=== PATIENT | male | born 1940 | race Caucasian/White ===

== ENCOUNTER 2016-06-28 17:34 | Inpatient (IN) | payer MEDICARE, BC ==
[2016-06-28] VITALS (7 sets, daily range): BP systolic 140–159; BP diastolic 64–88; PULSE 76–96; RESP 15–17; TEMP 97.8–98.6; O2SAT 95–98
[~2016-06-28] VITALS: Ht 172.7 cm; Wt 98.3 kg
[2016-06-28] MEDS ORDERED: SODIUM CHLOR 0.9% 1000 ML INJ 1,000 ML IV SCH (18:15)
[2016-06-28] MEDS ORDERED: ZOCO20TA PO (18:17)
[2016-06-28] MEDS ORDERED: [UNRECOGNIZED DRUG - OTHER] PO (18:17)
[2016-06-28] MEDS ORDERED: OMEG100010 PO (18:17)
[2016-06-28] MEDS ORDERED: CHOL100025 CHEW (18:17)
[2016-06-28 18:25] LABS: AUTOMATED NEUTROPHIL # 12.3 TH/MM3 (1.8-7.7); BASOPHIL # 0.5 TH/MM3 (0-0.2); BASOPHIL % 3.2 % (0.0-2.0); EOSINOPHIL % 0.2 % (0.0-4.0); HEMATOCRIT 44.5 % (39.0-51.0); LYMPHOCYTE # 1.9 TH/MM3 (1.0-4.8); MEAN CELL VOLUME 84.3 FL (80.0-100.0); MEAN CORPUSCULAR HEMOGLOBIN 28.2 PG (27.0-34.0); MEAN CORPUSCULAR HGB CONC 33.4 % (32.0-36.0); MONO % 5.1 % (0.0-8.0); NEUT % 79.5 % (16.0-70.0); PLATELET COUNT 312 TH/MM3 (150-450); RED BLOOD COUNT 5.28 MIL/MM3 (4.50-5.90); RED CELL DISTRIBUTION WIDTH 13.5 % (11.6-17.2); WHITE BLOOD COUNT 15.5 TH/MM3 (4.0-11.0)
[2016-06-28] MEDS ORDERED: MAGNESIUM HYDROXIDE SUSP 30 ML CUP PO PRN (18:30)
[2016-06-28] MEDS ORDERED: LACTULOSE SYRUP 20 GM/30 ML CUP PO PRN (18:30)
[2016-06-28] MEDS ORDERED: BISACODYL 10 MG SUPP RECTAL PRN (18:30)
[2016-06-28] MEDS ORDERED: NALOXONE HCL 0.4 MG/ML AMP IV PRN (18:30)
[2016-06-28] MEDS ORDERED: SODIUM CHLORIDE 0.9% FLUSH 10 ML FLUSH IV FLUSH PRN (18:30)
[2016-06-28] MEDS ORDERED: ONDANSETRON HCL 4 MG/2 ML VIAL IVP PRN (18:30)
[2016-06-28] MEDS ORDERED: SENNOSIDES 8.6 MG TAB PO PRN (18:30)
[2016-06-28 18:32] LABS: HEMO FLAGS DIFF FINAL
--- NOTE | 2016-06-28 18:33 | PD ---
HPI Chief Complaint: GI Complaint Time Seen by Provider: 18:10 Travel History International Travel<30 days: No Contact w/Intl Traveler<30days: No Traveled to known affect area: No History of Present Illness HPI 76-year-old male complaining of nausea and generalized malaise and weakness. Patient has history of syncope secondary to asystole in the past. Patient was referred to blender laborer pending pacemaker placement. Patient came from [place]. Patient's visiting [place]. Patient started having generalized malaise and weakness and nausea this afternoon. Patient was brought in for evaluation of GI symptoms. Patient is afebrile and vital signs stable upon presentation to the ED. Patient with putting the room and put on manager travel. Patient had a syncope and had asystole on monitor. Chest compressions started immediately. Patient regained pulse after 1 minute of asystole. Patient regained pulse and blood pressure and workup. Patient has no complaint now. Patient denies history hypertension, diabetes. Patient's on medication for hyperlipidemia. Patient is a nonsmoker. Patient denies any history of NC in the past. Patient denies any alcohol or drug abuse. PFSH Past Medical History Heart Rhythm Problems: Yes High Cholesterol: Yes Diminished Hearing: No Tetanus Vaccination: Unknown ?: Not Past Surgical History Abdominal Surgery: Yes (puncture injury) Appendectomy: Yes Social History Alcohol Use: Yes (rare) Tobacco Use: No Substance Use: No Allergies-Medications (Allergen,Severity, Reaction): Coded Allergies: No Known Allergies (Unverified , 06/28/16) Reported Meds & Prescriptions Reported Meds & Active Scripts Active Reported [super beta steroid] 1 Tab PO DAILY Vitamin D3 (Cholecalciferol) 1,000 Unit Chew 1,000 Units CHEW DAILY [place] 3 1000 mg ([place]-3 Fatty Acids) 1 Cap Cap 1 Cap PO DAILY Zocor (Simvastatin) 20 Mg Tab 20 Mg PO DAILY Review of Systems General / Constitutional: No: Fever Eyes: No: Visual changes HENT: No: Headaches Cardiovascular: No: Chest Pain or Discomfort Respiratory: No: Shortness of Breath Gastrointestinal: Positive: Nausea, No: Abdominal Pain Genitourinary: No: Dysuria Musculoskeletal: No: Pain Skin: No Rash Neurologic: Positive: Syncope, No: Weakness Psychiatric: No: Depression Endocrine: No: Polydipsia Hematologic/Lymphatic: No: Easy Bruising Physical Exam Narrative GENERAL: Well-nourished, well-developed patient. SKIN: Focused skin assessment warm/dry. HEAD: Normocephalic. EYES: No scleral icterus. No injection or drainage. NECK: Supple, trachea midline. No JVD or lymphadenopathy. CARDIOVASCULAR: Regular rate and rhythm without murmurs, gallops, or rubs. RESPIRATORY: Breath sounds equal bilaterally. No accessory muscle use. GASTROINTESTINAL: Abdomen soft, non-tender, nondistended. MUSCULOSKELETAL: No cyanosis, or edema. BACK: Nontender without obvious deformity. No CVA tenderness. Neurologic exam: Patient's awake alert oriented 3. No obvious focal neurological deficit. Data Data Last Documented VS Vital Signs Date Time Temp Pulse Resp B/P Pulse Ox O2 Delivery O2 Flow Rate FiO2 06/28/16 17:38 97.8 76 15 154/88 96 Orders Electrocardiogram (06/28/16 18:10) Complete Blood Count With Diff (06/28/16 18:10) Comprehensive Metabolic Panel (06/28/16 18:10) Creatine Kinase (Cpk) (06/28/16 18:10) Troponin I (06/28/16 18:10) Prothrombin Time / Inr (Pt) (06/28/16 18:10) Act Partial Throm Time (Ptt) (06/28/16 18:10) Thyroid Stimulating Hormone (06/28/16 18:10) Chest, Single Ap (06/28/16 18:10) Iv Access Insert/Monitor (06/28/16 18:10) Ecg Monitoring (06/28/16 18:10) Oximetry (06/28/16 18:10) Sodium Chlor 0.9% 1000 Ml Inj (Ns 1000 M (06/28/16 18:15) Consult Cardiology (06/28/16 ) [facility] Medical Decision Making Medical Screen Exam Complete: Yes Emergency Medical Condition: Yes Interpretation(s) 1832 PM. EKG shows sinus rhythm nonspecific ST-T wave change. Differential Diagnosis Differential diagnosis including asystole, sick sinus syndrome. Narrative Course 76-year-old male with an episode of asystole and syncope. Patient has 2 previous episodes of the same problem at home. I spoke with blender laborer Dr. Watson. Advised [facility] admission and cardiology consult for possible pacemaker placement. Diagnosis Primary Impression: Asystole Additional Impression: Syncope Qualified Code: R55 - Syncope, unspecified syncope type Admitting Information Admitting Physician Requests: Admit Garett Up MD June 28, 2016 18:33
[2016-06-28 18:34] LABS: CHLORIDE 106 MEQ/L (98-107); POTASSIUM 4.1 MEQ/L (3.5-5.1); SODIUM (NA) 141 MEQ/L (136-145)
[2016-06-28 18:37] LABS: ANION GAP 8 MEQ/L (5-15); BICARBONATE 27.4 MEQ/L (21.0-32.0)
[2016-06-28 18:38] LABS: BLOOD UREA NITROGEN 16 MG/DL (7-18)
[2016-06-28 18:39] LABS: APTT (PATIENT) 27.8 SEC (24.3-30.1); PROTHROMBIN TIME - PATIENT 11.4 SEC (9.8-11.6)
[2016-06-28 18:40] LABS: ALT (GPT) 24 U/L (12-78); AST (GOT) 33 U/L (15-37); GLOMERULAR FILTRATION RATE 75 ML/MIN (>89)
[2016-06-28 18:42] LABS: TOTAL BILIRUBIN ADULT 0.7 MG/DL (0.2-1.0)
[2016-06-28 18:43] LABS: ALKALINE PHOSPHATASE 90 U/L (45-117)
--- NOTE | 2016-06-28 18:45 | RADHPO ---
EXAM DATE/TIME: 06/28/2016 18:24 [facility] COMPARISON: No previous studies available for comparison. INDICATIONS : Syncopal episode today MEDICAL HISTORY : None. SURGICAL HISTORY : None. ENCOUNTER: Initial ACUITY: 1 day PAIN SCORE: 0/10 LOCATION: Bilateral chest FINDINGS: A single view of the chest demonstrates the lungs to be symmetrically aerated without evidence of mas s, infiltrate or effusion. The cardiomediastinal contours are unremarkable. Osseous structures are intact. CONCLUSION: No acute disease. Charles Mora MD on June 28, 2016 at 18:43 Board Certified Radiologist. This report was verified electronically.
[2016-06-28 18:52] LABS: CREATINE KINASE 61 U/L (39-308)
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
[2016-06-28] MEDS: SODIUM CHLOR 0.9% 1000 ML INJ 1,000 ML IV SCH (19:26)
[2016-06-28] MEDS ORDERED: DOCUSATE SODIUM 50 MG/SENNA 8.6 MG TAB PO SCH (21:00)
[2016-06-28] MEDS: SODIUM CHLORIDE 0.9% FLUSH 10 ML FLUSH IV FLUSH SCH (21:00)
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
--- NOTE | 2016-06-28 23:59 | PD.CARD ---
Cardiology Procedure Note Procedure Name: Transvenous pacemaker placement Procedure Date: June 28, 2016 Procedure Note: Right IJ placed by critical care, please see their note for details. TVP was floated into the RV with consistent pacing. Rate back up of 40 bpm Sensitivity at 2 mA Output at [address], pacing rechecked, output able to pace at 4mV so placed back at 8mV and locked. Chest Xray: No pneumo noted. Pacer appears to enter the RV but then is lost, does not appear to go up the RVOT. Most likely along the free wall. Pacing well, will leave in place for now without advancing. Tyrese Watson DO June 28, 2016 23:59
[2016-06-29] VITALS (8 sets, daily range): BP systolic 139–158; BP diastolic 73–91; PULSE 70–96; RESP 15–20; TEMP 97.6–98.1; O2SAT 94–98
--- NOTE | 2016-06-29 00:06 | RADRPT ---
EXAM DATE/TIME: 06/28/2016 23:44 [facility] COMPARISON: CHEST SINGLE AP, June 28, 2016, 18:24. INDICATIONS : Right sided central line placement. MEDICAL HISTORY : None. SURGICAL HISTORY : None. ENCOUNTER: Subsequent ACUITY: 1 day PAIN SCORE: 0/10 LOCATION: Right chest FINDINGS: A single view of the chest demonstrates the lungs to be symmetrically aerated without evidence of mas s, infiltrate or effusion. The cardiomediastinal contours are unremarkable. Osseous structures are intact. CONCLUSION: Normal examination with a new right IJ central venous catheter with its tip overlying the SVC. No vis ible pneumothorax. Praful Toussaint MD on June 29, 2016 at 0:05 Board Certified Radiologist. This report was verified electronically.
--- NOTE | 2016-06-29 00:38 | PD.PROCEDR ---
Procedure Note Procedure DATE: 06/29/16 LINE PLACEMENT: 6 Turkmen introducer placement INDICATION: Central venous access CONSENT Informed consent for procedure was obtained from patient after discussion of risks, benefits, alternatives. DESCRIPTION OF THE PROCEDURE The patient was placed in supine position, mild Trendelenburg. The skin was cleansed with Chloraprep 4. Additional barrier precautions included large sterile drape, sterile gloves, sterile gown, face mask, and hat. 1 % lidocaine was used for local anesthesia. Under direct ultrasound guidance and on single attempt, the vein was accessed with an introducer needle. The guide wire was advanced and the introducer and dilator were advanced. The dilator was removed. Dark venous blood was aspirated easily from the port. ESTIMATED BLOOD LOSS: Minimal COMPLICATIONS: No apparent complications. STAT chest x-ray demonstrated satisfactory introducer placement. No catheter sheath available as reportedly they have been ordered but the hospital is out. Advanced transvenous pacer but unable to obtain achieve sustained capture. Discussed with Dr. Watson who came to assist and successfully placed temporary transvenous pacer. Casi Cade MD June 29, 2016 00:38
--- NOTE | 2016-06-29 00:46 | RADRPT ---
EXAM DATE/TIME: 06/29/2016 00:21 [facility] COMPARISON: CHEST SINGLE AP, June 28, 2016, 23:44. INDICATIONS : Transvenous pacer placement. MEDICAL HISTORY : None. SURGICAL HISTORY : None. ENCOUNTER: Subsequent ACUITY: 2 days PAIN SCORE: 0/10 LOCATION: Right chest FINDINGS: A single view of the chest demonstrates the lungs to be symmetrically aerated without evidence of mas s, infiltrate or effusion. The cardiomediastinal contours are unremarkable. Osseous structures are intact. CONCLUSION: Normal examination. Right internal jugular central venous catheter in good position Praful Toussaint MD on June 29, 2016 at 0:44 Board Certified Radiologist. This report was verified electronically.
[2016-06-29] MEDS: SODIUM CHLOR 0.9% 1000 ML INJ 1,000 ML IV SCH ×2 (04:28→20:59)
[2016-06-29 05:21] LABS: AUTOMATED NEUTROPHIL # 10.3 TH/MM3 (1.8-7.7); BASOPHIL % 0.1 % (0.0-2.0); EOSINOPHIL % 0.2 % (0.0-4.0); HEMO FLAGS DIFF FINAL; LYMPH % 16.4 % (9.0-44.0); LYMPHOCYTE # 2.3 TH/MM3 (1.0-4.8); MEAN CELL VOLUME 84.9 FL (80.0-100.0); MEAN CORPUSCULAR HGB CONC 34.1 % (32.0-36.0); MONO % 9.5 % (0.0-8.0); NEUT % 73.8 % (16.0-70.0); PLATELET COUNT 245 TH/MM3 (150-450); RED BLOOD COUNT 4.83 MIL/MM3 (4.50-5.90); RED CELL DISTRIBUTION WIDTH 14.2 % (11.6-17.2); WHITE BLOOD COUNT 13.9 TH/MM3 (4.0-11.0)
[2016-06-29 05:32] LABS: INTERNATIONAL NORMALIZED RATIO 1.1 RATIO; PROTHROMBIN TIME - PATIENT 11.7 SEC (9.8-11.6)
[2016-06-29 05:42] LABS: ALKALINE PHOSPHATASE 84 U/L (45-117); ALT (GPT) 19 U/L (12-78); ANION GAP 7 MEQ/L (5-15); AST (GOT) 18 U/L (15-37); BLOOD UREA NITROGEN 11 MG/DL (7-18); CHLORIDE 107 MEQ/L (98-107); GLOMERULAR FILTRATION RATE 83 ML/MIN (>89); POTASSIUM 3.8 MEQ/L (3.5-5.1); SODIUM (NA) 142 MEQ/L (136-145); TOTAL BILIRUBIN ADULT 0.5 MG/DL (0.2-1.0)
--- NOTE | 2016-06-29 06:08 | HHI.CCPN ---
Subjective Remarks/Hospital Course 76-year-old male with past medical history of hyperlipidemia and tobacco abuse who presents to [facility] emergency department this afternoon after he states he was sitting on the couch tonight and got very lightheaded and nauseous. During his ED workup he was placed on engine monitor and had a syncopal event and then asystole. Chest compressions were initiated and he had return of rhythm and pulse after 1 minute. This episode recurred again in the emergency department and Dr. Up discussed with Dr. Watson who recommended transfer to [facility] and trans- venous pacer placement with probable permanent pacemaker placement. Patient states that he has been undergoing a workup for syncope as an outpatient in [facility] where he resides. He is currently visiting the [facility] because his grandson is graduating from [employer]. Patient states he initially had a syncopal event in April 2016 and fell and hit his head requiring stitches. He had a CT brain that was negative he had 2 week Holter monitor that was negative. He had a recurrent episode of syncope in May . After that he had carotid ultrasounds that were negative and echo that was reportedly negative. He had a one-month Holter monitor which we he completed on June [id number]. On June 15 he left to come to [place]. During his visit, he was contacted by the breeding technician that read his Holter monitor and was informed that he had 5.4 second positives and that permanent pacemaker placement was recommended and they recommended he make an appointment for pacemaker to be placed immediately upon arrival back to [place]. Patient is not on any medications that would affect heart rate. Subjective 06/29: Events overnight noted. Currently with some ectopy on monitor but hemodynamically stable. Actually hypertensive. For possible permit pacemaker placement today. Objective Vital Signs Date Time Temp Pulse Resp B/P Pulse Ox O2 Delivery O2 Flow Rate FiO2 06/29/16 03:27 96 06/29/16 03:27 98.0 15 139/80 95 06/29/16 00:20 Nasal Cannula 2.00 Result Diagram: 06/29/16 0448 06/29/16 0448 Imaging Last Impressions Chest X-Ray 06/29/16 0000 Signed Impressions: Service Date/Time: June 00:21 - CONCLUSION: Normal examination. Right internal jugular central venous catheter in good position Praful Toussaint MD Objective Remarks GENERAL: A 6-year-old male, critically ill currently resting in bed in no acute distress SKIN: Warm and dry. HEAD: Atraumatic. Normocephalic. EYES: Pupils equal and round about 3 Davis's bilaterally and reactive. No scleral icterus. No injection or drainage. ENT: No nasal bleeding or discharge. Mucous membranes pink and moist. NECK: Trachea midline. No JVD. CARDIOVASCULAR: RRR. S1, S2. No S4. Without murmur RESPIRATORY: No accessory muscle use. Clear to auscultation. Breath sounds equal bilaterally. GASTROINTESTINAL: Abdomen soft, non-tender, nondistended. Bowel sounds present. MUSCULOSKELETAL: Extremities without clubbing, cyanosis, or edema. No obvious deformities. NEUROLOGICAL: Awake and alert. No obvious cranial nerve deficits. Motor grossly within normal limits. Normal speech. A/P Assessment and Plan NEURO/PSYCH: No acute neurologic issues. Source likely likely cardiogenic in nature Patient states that in [place] he has had prior head CT and bilateral carotid ultrasounds that were negative. Attempt to obtain records from [place] otherwise will repeat at this facility RESP: Nasal cannula to keep saturations greater than equal to 92% Incentive spirometry while awake CV: Cardiogenic syncope Sonics bolus on monitor Hyperlipidemia Received CPR in ED 06/28 Temporary transv venous pacer placed 06/28/16 VVI RATE OF 40, 8mA, sensing 2 mV 2-D echocardiogram pending Cardiology following, Dr. Watson. Dr. Vasquez is his breeding technician in [place]. Actually planned pacemaker for July 07 elective Zocor 20 mg daily converted to Pravachol 40 mg daily. Fish oil 1 g daily currently held Check lipid panel Will be evaluated today by cardiology for possible permanent pacemaker placement. GI: NPO currently except for medications Protonix for GI prophylaxis Colace/as needed Senokot for bowel regimen FEN/RENAL/: History of BPH Not prescribed BPH meds Polo if indicated for accurate I's and O's in critically ill patient ID: Monitor for signs and symptoms of infection. HEME: Leukocytosis Likely stress reaction. Follow CBC daily. Monitor trends ENDO: Mild stress hyperglycemia. Resolved When resume diet, use low-dose insulin sliding scale before meals at bedtime if needed. Access - #6 Vietnamese introducer placed 06/28 by nocturnal pet house sitter - Temporary VVI pacemaker placed by Dr. Watson Prophylaxis - GI -Protonix - DVT - SCD/pharmacological prophylaxis okay with Critical Care: The total care time was 30 minutes. Time to perform other separately billable procedures was not included in the critical care time. Navarro Cabello MD June 29, 2016 06:08
[2016-06-29] MEDS ORDERED: POTASSIUM CHLORIDE 10 MEQ CONTROLLED RELEASE TAB PO ONE (06:15)
[2016-06-29 07:37] LABS: HDL CHOLESTEROL 33.8 MG/DL (40.0-60.0)
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
[2016-06-29] MEDS: SENNOSIDES 8.6 MG TAB PO SCH ×2 (09:00→20:59)
[2016-06-29] MEDS: DOCUSATE SODIUM 100 MG CAP PO SCH ×2 (09:00→20:58)
[2016-06-29] MEDS: PRAVASTATIN SOD 20 MG TAB PO SCH (10:20)
[2016-06-29] MEDS: SODIUM CHLORIDE 0.9% FLUSH 10 ML FLUSH IV FLUSH SCH ×2 (10:21→20:58)
[2016-06-29] MEDS: CHOLECALCIFEROL (VIT D3) 1000 UNIT TAB PO SCH (10:21)
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
--- NOTE | 2016-06-29 11:50 | EC ---
Study Study Date:06/29/2016 STUDY CONCLUSIONS SUMMARY - Left ventricle: The cavity size was normal. Wall thickness was normal. Systolic function was at the lower limits of normal. The estimated ejection fraction was in the range of 50% to 55%. Wall motion was normal; there were no regional wall motion abnormalities. - Aortic valve: Valve area: 3.11cm^2 (Vmax). If LV function is below 40, please consider prescribing an ACEI or ARB or document rationale for non-use. PROCEDURE DATA STUDY STATUS: Elective. Procedure: Transthoracic echocardiography. Image quality was poor. The study was technically limited due to poor acoustic window availability. Scanning was performed from the parasternal, apical, and subcostal acoustic windows. Study completion: The patient tolerated the procedure well. Transthoracic echocardiography. M-mode, complete 2D, complete spectral Doppler, and color Doppler. Height: Height: 68in. Weight: Weight: 230.5lb. Body mass index: BMI: 35.1kg/m^2. Body surface area: BSA: 2.17m^2. Patient status: Inpatient. CARDIAC ANATOMY LEFT VENTRICLE: Not well visualized. The cavity size was normal. Wall thickness was normal. Systolic function was at the lower limits of normal. The estimated ejection fraction was in the range of 50% to 55%. Wall motion was normal; there were no regional wall motion abnormalities. AORTIC VALVE: Trileaflet; normal thickness leaflets. Doppler: Transvalvular velocity was within the normal range. There was no stenosis. No regurgitation. Valve area: 3.11cm^2 (Vmax). Indexed valve area: 1.43cm^2/m^2 (Vmax). AORTA: Aortic root: The aortic root was normal in size. MITRAL VALVE: Structurally normal valve. Doppler: Transvalvular velocity was within the normal range. There was no evidence for stenosis. No regurgitation. Peak gradient: 4mm Hg (D). LEFT ATRIUM: The atrium was normal in size. RIGHT VENTRICLE: The cavity size was normal. Wall thickness was normal. PULMONIC VALVE: Doppler: Transvalvular velocity was within the normal range. There was no evidence for stenosis. No regurgitation. TRICUSPID VALVE: Structurally normal valve. Doppler: Transvalvular velocity was within the normal range. No regurgitation. PULMONARY ARTERY: The main pulmonary artery was normal-sized. Systolic pressure was within the normal range. RIGHT ATRIUM: The atrium was normal in size. PERICARDIUM: There was no pericardial effusion. SYSTEMIC VEINS: Inferior vena cava: The vessel was normal in size. Patient weight: 230.5lb _Ejection fraction:_ 65-75% _Fractional shortening:_ 32% up to 5Kg 5-11.5Kg 11.6-22.9Kg 23-45Kg 45-57Kg Aortic Root 7-13 <17 13-22 17-27 17-27 LA diam 6-13 <23 24-38 33-47 37-40 RVID 10-17 7-15 7-15 7-18 8-17 LVIDd 12-22 <32 24-38 33-47 37-40 LVPW 2-4 3-6 5-7 6-8 7-8 IVS 2-4 3-6 5-7 6-8 7-8 BASIC MEASUREMENTS ADULT NORMAL Left ventricle LV internal dimension, ED, chordal 45.4 mm 43-52 level, PLAX LV internal dimension, ES, chordal 36.2 mm 23-38 level, PLAX Fractional shortening, chordal level, *20 % >29 PLAX LV posterior wall thickness, ED 9.81 mm IVS/LVPW ratio, ED 1.02 <1.3 Ventricular septum Septal thickness, ED 9.98 mm Aortic valve Leaflet separation 19 mm 15-26 BASIC MEASUREMENTS ADULT NORMAL Aortic valve Leaflet separation 19 mm 15-26 Aorta Root diameter, ED 33 mm 20-37 Left atrium Anterior-posterior dimension, ES 35 mm 19-40 Anterior-posterior dimension index, ES 1.61 cm/m^2 <2.2 LA/aortic root ratio 1.06 DOPPLER MEASUREMENTS ADULT NORMAL Aortic valve Peak velocity, S 124 cm/s Valve area, Vmax 3.11 cm^2 Valve area index, Vmax 1.43 cm^2/m^2 Mitral valve Peak E-wave velocity 93.8 cm/s Peak A-wave velocity 116 cm/s Deceleration time *236 ms 150-230 Peak gradient, D 4 mm Hg Peak E/A ratio 0.8 Pulmonic valve Peak velocity, S 102 cm/s LEGEND: Mean values are shown as u=mean value. Asterisk (*) ingram values outside specified normal range. Prepared and signed by Praful Neil [id number]
--- NOTE | 2016-06-29 12:25 | PD.CARD.PN ---
Subjective Subjective Remarks No chest pain, no shortness of breath 1 event over night (~6am) where pacer necessary for back pacing at 40 bpm Objective Medications Current Medications Medications (Trade) Dose Ordered Sig/Rakesh Route Start Time Stop Time Status Last Admin (NS Flush) 2 ml UNSCH PRN IV FLUSH 06/28/16 18:30 (NS Flush) 2 ml BID IV FLUSH 06/28/16 21:00 06/29/16 10:21 (Zofran Inj) 4 mg Q6H PRN IVP 06/28/16 18:30 06/28/16 19:26 (Narcan Inj) 0.4 mg UNSCH PRN IV 06/28/16 18:30 (Milk Of Magnesia Liq) 30 ml Q12H PRN PO 06/28/16 18:30 (Senokot) 17.2 mg Q12H PRN PO 06/28/16 18:30 (Dulcolax Supp) 10 mg DAILY PRN RECTAL 06/28/16 18:30 (Lactulose Liq) 30 ml DAILY PRN PO 06/28/16 18:30 (Vitamin D3) 1,000 units DAILY PO 06/29/16 09:00 06/29/16 10:21 (Pravachol) 40 mg DAILY PO 06/29/16 09:00 06/29/16 10:20 (Colace) 100 mg BID PO 06/29/16 09:00 Sennosides 8.6 mg 8.6 mg Q12HR PO 06/29/16 09:00 Sodium Chloride 1,000 ml @ 150 mls/hr Q6H40M IV 06/30/16 02:00 Cefazolin Sodium 1000 mg/Sodium Chloride 150 ml @ 0 mls/hr ONCE IV 06/30/16 08:30 07/01/16 08:29 (Vancomycin Inj/ NS 250 ml Inj) 250 ml @ 0 mls/hr ONCE PRN IV 06/30/16 08:30 07/01/16 08:29 (Betadine 5% Antisepsis Kit) 1 applic HS TOPICAL 06/29/16 21:00 Vital Signs / I&O Vital Signs Date Time Temp Pulse Resp B/P Pulse Ox O2 Delivery O2 Flow Rate FiO2 06/29/16 11:33 88 06/29/16 11:00 97.8 70 16 140/75 97 06/29/16 11:00 70 06/29/16 07:49 94 Nasal Cannula 2.00 06/29/16 07:00 97.6 88 16 158/73 94 06/29/16 07:00 88 06/29/16 03:27 96 06/29/16 03:27 98.0 90 15 139/80 95 06/29/16 00:20 94 Nasal Cannula 2.00 06/28/16 23:36 94 17 140/78 95 06/28/16 23:36 92 06/28/16 21:30 95 06/28/16 21:30 98.6 96 17 142/82 95 06/28/16 20:35 88 150/70 95 Nasal Cannula 2 06/28/16 20:13 86 157/64 95 Nasal Cannula 2 06/28/16 19:25 85 16 159/75 98 Nasal Cannula 2 06/28/16 19:05 82 Nasal Cannula 2 06/28/16 18:21 96 06/28/16 17:38 97.8 76 15 154/88 96 I/O 06/28/16 06/28/16 06/28/16 06/29/16 06/29/16 06/29/16 07:00 15:00 23:00 07:00 15:00 23:00 Intake Total 867 ml Output Total 550 ml Balance 317 ml Intake Oral 140 ml IV Total 727 ml Output Urine Total 550 ml # Bowel Movements 0 Physical Exam GENERAL: NAD, AAOx3 SKIN: Warm and dry. HEAD: Atraumatic. Normocephalic. EYES: Pupils equal and round. No scleral icterus. No injection or drainage. ENT: No nasal bleeding or discharge. Mucous membranes pink and moist. NECK: Trachea midline. No JVD. Right IJ in place CARDIOVASCULAR: Regular rate and rhythm. RESPIRATORY: No accessory muscle use. Clear to auscultation. Breath sounds equal bilaterally. GASTROINTESTINAL: Abdomen soft, non-tender, nondistended. Hepatic and splenic margins not palpable. MUSCULOSKELETAL: Extremities without clubbing, cyanosis, or edema. No obvious deformities. NEUROLOGICAL: Awake and alert. No obvious cranial nerve deficits. Motor grossly within normal limits. Five out of 5 muscle strength in the arms and legs. Normal speech. PSYCHIATRIC: Appropriate mood and affect; insight and judgment normal. Laboratory Laboratory Tests Test 06/28/16 06/29/16 06/29/16 18:19 00:55 04:48 White Blood Count 15.5 TH/MM3 13.9 TH/MM3 Red Blood Count 5.28 MIL/MM3 4.83 MIL/MM3 Hemoglobin 14.9 GM/DL 14.0 GM/DL Hematocrit 44.5 % 41.0 % Mean Corpuscular Volume 84.3 FL 84.9 FL Mean Corpuscular Hemoglobin 28.2 PG 29.0 PG Mean Corpuscular Hemoglobin 33.4 % 34.1 % Concent Red Cell Distribution Width 13.5 % 14.2 % Platelet Count 312 TH/MM3 245 TH/MM3 Mean Platelet Volume 9.5 FL 9.0 FL Neutrophils (%) (Auto) 79.5 % 73.8 % Lymphocytes (%) (Auto) 12.0 % 16.4 % Monocytes (%) (Auto) 5.1 % 9.5 % Eosinophils (%) (Auto) 0.2 % 0.2 % Basophils (%) (Auto) 3.2 % 0.1 % Neutrophils # (Auto) 12.3 TH/MM3 10.3 TH/MM3 Lymphocytes # (Auto) 1.9 TH/MM3 2.3 TH/MM3 Monocytes # (Auto) 0.8 TH/MM3 1.3 TH/MM3 Eosinophils # (Auto) 0.0 TH/MM3 0.0 TH/MM3 Basophils # (Auto) 0.5 TH/MM3 0.0 TH/MM3 CBC Comment DIFF FINAL DIFF FINAL Differential Comment Prothrombin Time 11.4 SEC 11.7 SEC Prothromb Time International 1.0 RATIO 1.1 RATIO Ratio Activated Partial 27.8 SEC Thromboplast Time Sodium Level 141 MEQ/L 142 MEQ/L Potassium Level 4.1 MEQ/L 3.8 MEQ/L Chloride Level 106 MEQ/L 107 MEQ/L Carbon Dioxide Level 27.4 MEQ/L 28.0 MEQ/L Anion Gap 8 MEQ/L 7 MEQ/L Blood Urea Nitrogen 16 MG/DL 11 MG/DL Creatinine 0.98 MG/DL 0.89 MG/DL Estimat Glomerular Filtration 75 ML/MIN 83 ML/MIN Rate Random Glucose 155 MG/DL 92 MG/DL Calcium Level 8.6 MG/DL 7.9 MG/DL Total Bilirubin 0.7 MG/DL 0.5 MG/DL Aspartate Amino Transf 33 U/L 18 U/L (AST/SGOT) Alanine Aminotransferase 24 U/L 19 U/L (ALT/SGPT) Alkaline Phosphatase 90 U/L 84 U/L Total Creatine Kinase 61 U/L Troponin I LESS THAN 0.02 0.03 NG/ML NG/ML Total Protein 7.6 GM/DL 6.5 GM/DL Albumin 3.6 GM/DL 3.0 GM/DL Thyroid Stimulating Hormone 1.860 uIU/ML 3rd Gen Phosphorus Level 2.9 MG/DL Magnesium Level 2.0 MG/DL Triglycerides Level 68 MG/DL Cholesterol Level 123 MG/DL LDL Cholesterol 76 MG/DL HDL Cholesterol 33.8 MG/DL Cholesterol/HDL Ratio 3.63 RATIO Assessment and Plan Problem List: (1) Syncope (2) Asystole Assessment and Plan 1) TVP in place Retested this morning, able to pace at 3.5mV Set at rate of 40 bpm Output 8 mV Sensitivity 2 mA 2) Will defer to Dr. Robledo, EP Cardiology, for further management with a plan for PPM in the morning Problem Qualifiers (1) Syncope: Qualified Code: R55 - Syncope, unspecified syncope type Tyrese Watson DO June 29, 2016 12:25
--- NOTE | 2016-06-29 16:59 | EKG ---
Date Performed: 06/29/2016 Time Performed: 06:04:08 PTAGE: 76 years EKG: Sinus rhythm Normal ECG PREVIOUS TRACING : 06/29/2016 01.12 Compared to prior tracing no significant change DOCTOR: Tyrese Watson Interpretating Date/Time 06/29/2016 16:57:39
--- NOTE | 2016-06-29 17:05 | EKG ---
Date Performed: 06/29/2016 Time Performed: 01:12:58 PTAGE: 76 years EKG: Sinus rhythm with PVC(s) Borderline ECG Compared to the PREVIOUS TRACING from 06/28/16, no significant change DOCTOR: Tyrese Watson Interpretating Date/Time 06/29/2016 17:05:26
--- NOTE | 2016-06-29 17:25 | EKG ---
Date Performed: 06/28/2016 Time Performed: 18:02:18 PTAGE: 76 years EKG: Sinus rhythm . Poor R wave progression - probable normal variant Inferior T wave changes are nonspecific Borderlin e ECG NO PREVIOUS TRACING DOCTOR: Tyrese Watson Interpretating Date/Time 06/29/2016 17:23:55
[2016-06-29] MEDS: MUPIROCIN 2% OINT 1 APPLIC/GM SYR EACH NARE SCH (20:58)
[2016-06-29] MEDS: CHLORHEXIDINE GLUCONATE 2 % 1 PACK (2 CLOTHS) TOPICAL SCH (20:59)
[2016-06-29] MEDS: POVIDONE IODINE 5% (ANTISEPSIS KIT) 4 APPLICATIONS TOPICAL SCH (20:59)
[2016-06-30] VITALS (10 sets, daily range): BP systolic 122–169; BP diastolic 50–94; PULSE 62–85; RESP 16–20; TEMP 98–98.5; O2SAT 92–99
[2016-06-30] MEDS: SODIUM CHLOR 0.9% 1000 ML INJ 1,000 ML IV SCH (02:57)
[2016-06-30 05:58] LABS: AUTOMATED NEUTROPHIL # 9.4 TH/MM3 (1.8-7.7); BASOPHIL % 0.2 % (0.0-2.0); EOSINOPHIL # 0.1 TH/MM3 (0-0.4); EOSINOPHIL % 0.7 % (0.0-4.0); HEMATOCRIT 42.5 % (39.0-51.0); HEMO FLAGS DIFF FINAL; LYMPH % 17.3 % (9.0-44.0); LYMPHOCYTE # 2.3 TH/MM3 (1.0-4.8); MEAN CELL VOLUME 85.9 FL (80.0-100.0); MEAN CORPUSCULAR HEMOGLOBIN 27.8 PG (27.0-34.0); MEAN CORPUSCULAR HGB CONC 32.4 % (32.0-36.0); MONO % 10.7 % (0.0-8.0); NEUT % 71.1 % (16.0-70.0); PLATELET COUNT 214 TH/MM3 (150-450); RED BLOOD COUNT 4.94 MIL/MM3 (4.50-5.90); WHITE BLOOD COUNT 13.2 TH/MM3 (4.0-11.0)
[2016-06-30 06:23] LABS: ALT (GPT) 18 U/L (12-78); ANION GAP 5 MEQ/L (5-15); AST (GOT) 17 U/L (15-37); BICARBONATE 29.9 MEQ/L (21.0-32.0); BLOOD UREA NITROGEN 10 MG/DL (7-18); CHLORIDE 110 MEQ/L (98-107); GLOMERULAR FILTRATION RATE 89 ML/MIN (>89); MAGNESIUM 2.1 MG/DL (1.5-2.5); POTASSIUM 4.2 MEQ/L (3.5-5.1); SODIUM (NA) 145 MEQ/L (136-145)
[2016-06-30 06:26] LABS: ALKALINE PHOSPHATASE 87 U/L (45-117); TOTAL BILIRUBIN ADULT 0.3 MG/DL (0.2-1.0)
[2016-06-30] MEDS: SENNOSIDES 8.6 MG TAB PO SCH ×2 (08:23→21:00)
[2016-06-30] MEDS: DOCUSATE SODIUM 100 MG CAP PO SCH ×2 (08:23→21:00)
[2016-06-30] MEDS: PRAVASTATIN SOD 20 MG TAB PO SCH (08:23)
[2016-06-30] MEDS: CHOLECALCIFEROL (VIT D3) 1000 UNIT TAB PO SCH (08:24)
[2016-06-30] MEDS ORDERED: SODIUM CHLORIDE 0.9% IV SCH (08:30)
[2016-06-30] MEDS ORDERED: VANCOMYCIN INJ 1,000 MG in SODIUM CHLOR 0.9% 250 ML INJ 250 ML IV PRN (08:30)
[2016-06-30] MEDS ORDERED: CEFAZOLIN IV SCH (08:30)
[2016-06-30] MEDS: SODIUM CHLORIDE 0.9% FLUSH 10 ML FLUSH IV FLUSH SCH ×2 (08:38→21:19)
--- NOTE | 2016-06-30 09:14 | HHI.CCPN ---
Subjective Remarks/Hospital Course 76-year-old male with past medical history of hyperlipidemia and tobacco abuse who presents to [facility] emergency department this afternoon after he states he was sitting on the couch tonight and got very lightheaded and nauseous. During his ED workup he was placed on aquatic instructor and had a syncopal event and then asystole. Chest compressions were initiated and he had return of rhythm and pulse after 1 minute. This episode recurred again in the emergency department and Dr. Up discussed with Dr. Watson who recommended transfer to [facility] and trans- venous pacer placement with probable permanent pacemaker placement. Patient states that he has been undergoing a workup for syncope as an outpatient in [facility] where he resides. He is currently visiting the [facility] because his grandson is graduating from [employer]. Patient states he initially had a syncopal event in April 2016 and fell and hit his head requiring stitches. He had a CT brain that was negative he had 2 week Holter monitor that was negative. He had a recurrent episode of syncope in May . After that he had carotid ultrasounds that were negative and echo that was reportedly negative. He had a one-month Holter monitor which we he completed on June [id number]. On June 15 he left to come to [place]. During his visit, he was contacted by the servicer coin machines that read his Holter monitor and was informed that he had 5.4 second positives and that permanent pacemaker placement was recommended and they recommended he make an appointment for pacemaker to be placed immediately upon arrival back to [place]. Patient is not on any medications that would affect heart rate. 06/29: Events overnight noted. Currently with some ectopy on monitor but hemodynamically stable. Actually hypertensive. For possible permit pacemaker placement today. Subjective 06/30: Episode of hypoxia overnight likely secondary to underlying obstructive sleep apnea. Sats in the 70s on nasal cannula and switched to 6 L Venturi mask. While awake sats are 99% awake and alert and following commands. Pacemaker is intermittently pacing throughout the night and rate increased to 60 Objective Vital Signs Date Time Temp Pulse Resp B/P Pulse Ox O2 Delivery O2 Flow Rate FiO2 06/30/16 07:36 79 06/30/16 07:36 98.1 16 139/87 92 06/30/16 07:36 Venturi Mask 3.00 06/30/16 07:22 50 Intake and Output 06/29/16 06/29/16 06/30/16 08:00 16:00 00:00 Intake Total 867 ml 1680 ml Output Total 550 ml 825 ml Balance 317 ml 855 ml Result Diagram: 06/30/16 0523 06/30/16 0523 Imaging Last Impressions Chest X-Ray 06/29/16 0000 Signed Impressions: Service Date/Time: June 00:21 - CONCLUSION: Normal examination. Right internal jugular central venous catheter in good position Praful Toussaint MD Objective Remarks GENERAL: A 6-year-old male, critically ill currently resting in bed in no acute distress SKIN: Warm and dry. HEAD: Atraumatic. Normocephalic. EYES: Pupils equal and round about 3 millimeters bilaterally and reactive. No scleral icterus. No injection or drainage. ENT: No nasal bleeding or discharge. Mucous membranes pink and moist. NECK: Trachea midline. No JVD. CARDIOVASCULAR: RRR. S1, S2. No S4. Without murmur. Intermittently paced RESPIRATORY: No accessory muscle use. Clear to auscultation. Breath sounds equal bilaterally. GASTROINTESTINAL: Abdomen soft, non-tender, nondistended. Bowel sounds present. MUSCULOSKELETAL: Extremities without significant peripheral edema. No obvious deformities. NEUROLOGICAL: Awake and alert. No obvious cranial nerve deficits. Motor grossly within normal limits. Normal speech. Vascular Central Line Catheter: Yes Assessment to: Continue Date of Insertion: June 28, 2016 Line: Central Venous Catheter Side: Right Location: Internal, Jugular A/P Assessment and Plan NEURO/PSYCH: No acute neurologic issues. Source likely likely cardiogenic in nature Patient states that in [place] he has had prior head CT and bilateral carotid ultrasounds that were negative. Attempt to obtain records from [place] otherwise will repeat at this facility RESP: Likely underlying ROULA Switch from Venturi mask to Nasal cannula to keep saturations greater than equal to 92% Incentive spirometry while awake Outpatient sleep study recommended. CV: Cardiogenic syncope Normal sinus rhythm on monitor Hyperlipidemia Received CPR in ED 06/28 Temporary transv venous pacer placed 06/28/16 VVI rate increased to 60, 8mA, sensing 2 mV 2-D echocardiogram revealed EF 50-55%. No regional wall motion abnormality. Cardiology following, Dr. Watson. Dr. Robledo for pacemaker placement today at 9:30 Dr. Vasquez is his servicer [employer] machines in [place]. Actually planned pacemaker for July 07 elective Zocor 20 mg daily converted to Pravachol 40 mg daily. Fish oil 1 g daily currently held Check lipid panel - actually within normal limits GI: NPO currently except for medications Protonix for GI prophylaxis Colace/as needed Senokot for bowel regimen FEN/RENAL/: History of BPH Not prescribed BPH meds Polo if indicated for accurate I's and O's in critically ill patient ID: Monitor for signs and symptoms of infection. HEME: Leukocytosis Likely stress reaction. Follow CBC daily. Monitor trends ENDO: Mild stress hyperglycemia. Resolved When resume diet, use low-dose insulin sliding scale before meals at bedtime if needed. Access - #6 Mauritanian introducer placed 06/28 by nocturnal offset lithographic press setter - Temporary VVI pacemaker placed by Dr. Watson Prophylaxis - GI -Protonix - DVT - SCD/pharmacological prophylaxis okay with cardiology Critical Care: The total care time was 30 minutes. Time to perform other separately billable procedures was not included in the critical care time. Navarro Cabello MD June 30, 2016 09:13
[2016-06-30] MEDS ORDERED: MIDAZOLAM HCL 2 MG/2 ML VIAL ONE ×2 (09:17→10:14)
[2016-06-30] MEDS: ceFAZolin INJ 1,000 MG VIAL ONE ×2 (09:18→09:35)
[2016-06-30] MEDS ORDERED: VANCOMYCIN HCL 1000 MG VIAL ONE (09:19)
[2016-06-30] MEDS ORDERED: LIDOCAINE HCL 2% 50 ML VIAL ONE (09:23)
[2016-06-30] MEDS ORDERED: LIDOCAINE HCL 1% PF 30 ML VIAL ONE (10:14)
[2016-06-30] MEDS ORDERED: ZOLPIDEM TARTRATE 5 MG TAB PO PRN (11:00)
[2016-06-30] MEDS ORDERED: traMADol HCL 50 MG TAB PO PRN (11:00)
--- NOTE | 2016-06-30 11:04 | CATHPROC ---
[facility] HIS Report Study Information Study Number Admission Scheduled Start Study Start [id number] 06/28/2016 06/30/2016 Jun 30 2016 8:17AM Referring Institution Admit Source Facility Department [address] [facility] Physician and Clinical Staff Initial Mario Alatorre Complaint Supervisor Loulou Iqbal RN Other Manuel Butler,RT(R) TECH2 Recorder Shirley Butler BSRN Scrub Della Alanis,RT(R) Procedures Performed Procedure Location (Site) Vessel Name Lead Insertion Venogram Subclav. Vein (Lft Subclavian Vein Equipment Time Retail Merchandising Coordinator Description Size Mfg Part Number Used/Scraped 10:23 BIOTRONIK LEAD, SOLIA 60 PRO MRI * [id number] Used 10:38 BIOTRONIK LEAD, SOLIA 60 53 PRO MRI * [id number] Used 10:39 BIOTRONIK PACEMAKER, ELUNA 8 DR-T DDDR [id number] Used [id number] 08:22 MEDLINE INDUSTRIES SUTURE, STRIP PLUS 1/2" * Used *[id number] 08:22 MEDLINE PACER ADHESIVE, MASTISOL 2/3CC 2/3CC 0523-48 Used 08:22 MEDLINE PACER PANCHAL, LIMB * 2530 Used [id number] 08:22 MEDLINE PACER PACK, PACER CUSTOM * Used *[id number] 08:22 MEDLINE PACER PEN, SKIN DUAL W/ RULER * [id number] Used 10:00 [employer] MEDICAL PACER SAFE SHEATH, FR7, 13CM FR 7 [id number] Used 10:00 [employer] MEDICAL PACER SAFE SHEATH, FR7, 13CM FR 7 [id number] Used 09:35 Needle Sponge Count 2 22 Used 09:34 Needle Sponge Count 2 2 Used 10:46 Needle Sponge Count 2 22 Used 10:46 Needle Sponge Count 30 1 Used 09:34 Needle Sponge Count 30 1 Used 10:06 Needle Sponge Count 4 4 Used 10:46 Needle Sponge Count 4 4 Used 10:03 NYCOMED OMNIPAQUE, 300 MG, 150ML 150ML [id number] Used SUTURE, 3-0 VICRYL [SH] ([id number]) SUTURE, 3-0 VICRYL [SH] ([id number]) SUTURE, 4-0 MONOCRYL [PS2] ([id number]) [id number] 08:22 [employer] BLANKET,WARM AIR CCL * Used *[id number] [place] PAD, ELECTROSURGICAL 08:22 * [id number] Used SURGICAL GROUNDING ORANGE 08:22 [employer] GRAYSON. ELECTRODE, PRO-PADZ BIPHASIC * [id number] Used Equipment Model, Serial, Lot Number and Expiration Data Description Model Number Serial Number Lot Number Expiration Date LEAD, SOLIA 60 PRO MRI [id number] 02-04-2018 LEAD, SOLIA 60 53 PRO MRI [id number] 03-07-2018 PACEMAKER, ELUNA 8 MANUELA [id number] 09-04-2017 History: Current Medications Medication Dosage/Unit Route Frequency Last Date/Time Taken Zocor History: Allergies Allergy Reaction NKDA History: Risk Factors Family History of Hypertension Dyslipidemia Previous VA Previous Heart Failure Premature CAD No Yes No No No Prior Valve Prior PCI Prior CABG Surgery No No No Cerebrovascular Peripheral Artery Chronic Lung On Dialysis Diabetes Disease Disease Disease No No No No No History: Symptoms/Diagnosis Selection Items Syncope Labs Hgb (g/dl) Hct (%) RBC (MIL/MM3) WBC (l/cumm) Platelets (thousands) 12.00-18.00 37.00-55.00 4.80-6.20 4.80-10.80 140.00-450.00 13.0 42 4.9 13.2 214 Glucose (mg/dl) BUN (mg/dl) Creatinine (mg/dl) BUN:Creatinine (1:x) 60.00-110.00 8.00-20.00 0.10-9.00 10.00-20.00 105 10 0.8 12.5 Na (meq/l) K (meq/l) Cl (meq/l) CO2 (mmol/L) Ca (mg/dl) 138.00-146.00 3.80-5.10 101.00-111.00 23.00-30.00 9.00-10.50 145 4.2 110 29.9 8.2 PT (sec) INR (PTT:PT) 9.40-11.40 0.50-2.00 11.7 1.1 Medication Medication Total Dose (Bolus/Oral) Medication Total Dosage/Unit 2% XYLOCAINE 50 mL FENTANYL 50 mcg VERSED 3 mg Medications (Bolus/Oral) Medication Time Given Dosage/Unit Administered By Reason VERSED 06/30/2016 9:57:15 AM 2 mg Loulou Iqbal For sedation 2 mg VERSED given in lab by Loulou Iqbal, ARELY in Right Forearm via Peripheral IV. Ordered by Mario Robledo. Reason: For sedation. FENTANYL 06/30/2016 9:59:00 AM 50 mcg Loulou Iqbal As per physicians ve rbal order 50 mcg FENTANYL given in lab by Loulou Iqbal, ARELY in Right Forearm via Peripheral IV. Ordered by Mario Guardado. Reason: As per physicians verbal order. 2% XYLOCAINE 06/30/2016 10:06:11 AM 50 mL Mario Robledo 50 mL 2% XYLOCAINE given in lab by Mario Robledo via Subcutaneous. Ordered by Mario Robledo. left upper chest VERSED 06/30/2016 10:16:33 AM 1 mg Loulou Iqbal As per physicians verb al order 1 mg VERSED given in lab by Loulou Iqbal RN in Right Forearm via Peripheral IV. Ordered by Mario Robledo. Reason: As per physicians verbal order. Medication (Drip) Medication Time Given Dosage/Unit Concentration/Unit Diluent (ml) Solution ANCEF 06/30/2016 9:35:00 AM 1 g 1 g ANCEF given in lab by Loulou Iqbal RN in Right Forearm via Peripheral IV. Ordered by Mario Robledo. Reason: As per physicians verbal order. IV Solutions 06/30/2016 9:02:33 AM 0 mL (IV) NaCl .9 Patient arrived on IV Solutions in Right Forearm via Peripheral IV. Pump/Drip Flow = 150 ml/hr using NaCl .9. Ordered by Mario Robledo. Reason: As per physicians verbal order. VANCOMYCIN DRIP 06/30/2016 9:35:10 AM 1 g 1 g VANCOMYCIN DRIP given in lab by Loulou Iqbal RN in Right Forearm via Peripheral IV. Ordered by Mario Robledo. Reason: As per physicians verbal order. Initial Case Assessment Cardiovascular HR NIBP Chest Pain 73 160/92 0 Edema Present Skin color Skin None Normal Warm Dry Neurological State Oriented to time-place- Alert Moves all extremities person Respiration - General Respiration Rate SpO2 (%) O2 (lpm) (B/min) 18 96 2 Chronological Log Time Study Chronological Log 9:00:54 Patient arrived via Bed. 9:00:57 Patient Name, D.O.B, / Armband Verified By R.N. 9:00:59 Consent signed by the physician and the patient and verified by the [facility] staff. 9:01:01 Pre-op and post- op instructions given; patient acknowledges understanding of instructions . 9:01:24 Verbal Stimulation=2 Physical Stimulation=2 Airway=2 Respiration=2 TOTAL=10. (0=absent, 1= limited, 2=present) 9:01:38 Presedation assessment performed by [facility] RN. 9:01:40 Patient has been NPO for More than 6Hrs. 9:01:43 Skin Breakdown- none 9:01:58 Patient Warmer Placed on the Table. 9:02:00 Disposable Defibrillator Pads Placed On Patient. 9:02:04 Deep Prominences Protected 9:02:06 A # 20 IV was noted in the Forearm (right). Grade = ~GRADE~ Patient arrived on IV Solutions in Right Forearm via Peripheral IV. Pump/Drip Flow = 150 ml/hr u sing NaCl .9. Ordered 9:02:33 by Mario Robledo. Reason: As per physicians verbal order. 9:03:28 History and physical on the chart or being dictated. 9:03:31 Table restraints applied according to hospital policy 9:03:39 Bovie ground pad applied to: right upper thigh 9:03:44 2% CHLORHEXIDINE GLUCONATE WASH AND NASAL SWIPE DONE PRIOR TO PROCEDURE. Assessment: Initial Case, HR=73 BPM, VFMH=867/92 mmhg, Chest Pain=0, Edema=None, Color=Normal, S kin = Warm, Dry 9:05:00 Neurological: State=Alert, Ox3, ERWIN Respiration: Resp=18 B/min, SpO2=96 %, O2=2 lpm Vitals capture started with the following parameters, Patient=Adult, Interval=15 min, Initial Pr mufuim=074 mmHg, 9:11:42 Deflation Rate=5 mmHg 9:12:43 HR=78 bpm, QCKO=873/92 mmhg, SpO2=96.0 %, Resp=19 B/min, Pain=0, Tiffany=10, Anderson=2 9:13:31 Left Upper Chest Prepped Times Two. 9:17:21 HR=73 bpm, UZNQ=153/83 mmhg, SpO2=99.0 %, Resp=10 B/min, Pain=0, Tiffany=10, Anderson=2 9:19:26 Reference ECG taken 9:22:22 HR=83 bpm, GFKP=523/86 mmhg, LcB0=901.0 %, Resp=23 B/min, Pain=0, Tiffany=10, Anderson=2 9:27:25 HR=75 bpm, IEMO=993/79 mmhg, PnL3=789.0 %, Resp=56 B/min, Pain=0, Tiffany=10, Anderson=2 9:32:26 HR=79 bpm, SDAX=327/85 mmhg, SlX6=698.0 %, Resp=2 B/min, Pain=0, Tiffany=10, Anderson=2 First Sponge And Instrument Count Done by Loulou Iqbal, ARELY. 9:33:43 Hypo's: 4, Sponges: 30, Bovie/scratch: 2 Sutures: 6, Blades: 2, Instruments: 26, Syveck Patches: 0 1 g ANCEF given in lab by Loulou Iqbal RN in Right Forearm via Peripheral IV. Ordered by Mario Pearson. Reason: 9:35:00 As per physicians verbal order. 1 g VANCOMYCIN DRIP given in lab by Loulou Iqbal, ARELY in Right Forearm via Peripheral IV. Ord ered by Venkat 9:35:10 Mario. Reason: As per physicians verbal order. 9:37:26 HR=78 bpm, SAQW=571/86 mmhg, ZtZ3=222.0 %, Resp=13 B/min, Pain=0, Tiffany=10, Anderson=2 9:38:27 paged 9:42:22 HR=86 bpm, VLTK=514/92 mmhg, MnR0=830.0 %, Resp=12 B/min, Pain=0, Tiffany=10, Anderson=2 9:47:23 Reference ECG taken 9:47:26 HR=75 bpm, NEYM=167/84 mmhg, VxA6=581.0 %, Resp=3 B/min, Pain=0, Tiffany=10, Anderson=2 9:51:50 MD arrived. 9:52:23 HR=77 bpm, LWQW=780/90 mmhg, PrB2=293.0 %, Resp=0 B/min, Pain=0, Tiffany=10, Anderson=2 9:55:27 Immediate Presedation assesment performed by physician. Time Out. Correct patient, procedure, procedure equipment, site and side verified with physician present. Time 9:56:29 concurred by MD, individual staff and ACTION INSTALLER. Time Out #2 - Consents verified, patient in correct position, all results are labled and display ed, safety precautions 9:56:32 taken, antibiotics administered. Time out concurred by MD, individual staff and ACTION INSTALLER in procedur e 9:56:35 Case Start 2 mg VERSED given in lab by Loulou Iqbal, ARELY in Right Forearm via Peripheral IV. Ordered by Mario Robledo. 9:57:15 Reason: For sedation. 9:57:26 HR=83 bpm, YJGO=719/82 mmhg, AoU7=946.0 %, Resp=16 B/min, Pain=0, Tiffany=10, Anderson=2 50 mcg FENTANYL given in lab by Loulou Iqbal RN in Right Forearm via Peripheral IV. Ordere d by Mario Robledo. 9:59:00 Reason: As per physicians verbal order. 10:00:30 The Subclav. Vein (Lft was manually injected with 50 cc's of contrast. OMNIPAQUE, 300 MG, 1 50ML 150ML used. 10:02:25 HR=83 bpm, GBGB=612/81 mmhg, SpO2=98.0 %, Resp=19 B/min, Pain=0, Tiffany=9, Anderson=2 10:06:11 50 mL 2% XYLOCAINE given in lab by Mario Robledo via Subcutaneous. Ordered by Mario Robledo. left upper chest 10:06:48 Surgical Incision Made. 10:07:24 HR=78 bpm, XSCQ=887/72 mmhg, EpU6=655.0 %, Resp=9 B/min, Pain=0, Tiffany=10, Anderson=2 10:09:27 Vascular access was obtained in the Subclav. Vein (Lft. 10:12:23 HR=77 bpm, VXWG=954/80 mmhg, SpO2=99.0 %, Resp=10 B/min, Pain=0, Tiffany=9, Anderson=2 1 mg VERSED given in lab by Loulou Iqbla, RN in Right Forearm via Peripheral IV. Ordered by Mario Robledo. 10:16:33 Reason: As per physicians verbal order. 10:17:24 HR=81 bpm, JJUI=628/81 mmhg, ClA4=759.0 %, Resp=21 B/min, Pain=0, Tiffany=9, Anderson=2 10:19:29 Two sponges put into the surgical pocket. 10:21:28 Vascular access was obtained in the Subclav. Vein (Lft. 10:21:37 A SAFE SHEATH, FR7, 13CM FR 7 was advanced into the Subclav. Vein (Lft using the Percutaneo us technique. 10:22:19 HR=86 bpm, XQGF=111/93 mmhg, SpO2=98.0 %, Resp=17 B/min, Pain=0, Tiffany=10, Anderson=2 10:24:02 A LEAD, SOLIA 60 PRO MRI * was inserted and positioned in the RV. 10:26:40 Lead placement verified under fluoroscopy 10:26:42 The RV lead impedance and threshold being tested. 10:26:43 The RV lead was sutured to the fascia. 10:27:24 HR=83 bpm, BIXH=195/81 mmhg, SpO2=97.0 %, Resp=10 B/min, Pain=0, Tiffany=9, Anderson=2 10:31:32 A SAFE SHEATH, FR7, 13CM FR 7 was advanced into the Subclav. Vein (Lft using the Percutaneo us technique. 10:32:27 HR=87 bpm, QQJA=674/84 mmhg, SpO2=99.0 %, Resp=16 B/min, Pain=0, Anderson=2 10:35:18 A LEAD, SOLIA 60 PRO MRI * was inserted and positioned in the RA. 10:35:29 Lead placement verified under fluoroscopy 10:35:51 The Atrial lead impedance and threshold is being tested. 10:35:54 The Atrial lead was sutured to the fascia. 10:37:22 HR=88 bpm, CXBN=892/79 mmhg, SpO2=92.0 %, Resp=22 B/min, Pain=0, Tiffany=9, Anderson=2 10:39:24 Antibiotic sponges removed from the surgical pocket. 10:39:32 A PACEMAKER, ELUNA 8 DR-T DDDR was connected and placed in the pocket. 10:42:27 HR=91 bpm, YVKZ=642/85 mmhg, SpO2=95.0 %, Resp=15 B/min, Pain=0, Anderson=2 10:43:09 Temporary pacer turned off and removed by Dr Robledo 10:44:45 The pocket was closed. 10:44:56 Implant Procedure was performed. 10:45:06 A PPM Implant . (Dual) 10:45:20 Bedside Report will be given. Second Sponge And Instrument Count Done by Manuel Butler, RT(R) TECH2. 10:45:23 Hypo's: 4, Sponges: 30, Bovie/scratch: 2 Sutures: ~SUTURE~, Blades: 2, Instruments: ~INSTRU~, Syveck Patches: ~SYVECK PATCH~ 10:47:30 HR=85 bpm, RKVD=797/88 mmhg, HcC8=525.0 %, Resp=20 B/min, Pain=0, Anderson=2 10:52:29 HR=86 bpm, MHNE=677/88 mmhg, UqE3=603.0 %, Resp=13 B/min, Pain=0, Anderson=2 10:52:52 Case End 10:52:53 Implant Procedure was performed. The Final Sponge And Instrument Count Done by Della Alanis RT(R). 10:53:52 Hypo's: 4, Sponges: 30, Bovie/scratch: 2 Sutures: 6, Blades: 2, Instruments: 26, Syveck Patches: ~SYVECK PATCH~ 10:56:26 A sling was placed on the affected arm. 10:57:06 Steri-strips and a sterile dressing applied to site. 10:57:26 HR=86 bpm, EQVG=627/94 mmhg, KgW7=465.0 %, Resp=13 B/min, Pain=0, Tiffany=10, Anderson=2 11:02:29 MPKH=969/90 mmhg, SpO2=99.0 %, Pain=0, Anderson=2 11:02:42 Vitals capture stopped. 11:03:11 Report to be given at bedside. CVICU notified. Patient moved to bed and transferred in stable condition. End Study - Contrast Media Used In Study Contrast Total Opened (mL) Total Used (mL) Total Wasted (mL) Omnipaque 150 50 100 End Study - Maximum Contrast Load Max Contrast Load (mL) 612.5 End Study - Radiation Exposure Fluoro Time (minutes) 10.2 End Study - Patient Disposition Complications Transferred To Interventional Outcome No Telemetry Bed successful
--- NOTE | 2016-06-30 11:04 | PD.CARD.PN ---
Subjective Subjective Remarks Denies recurrent syncope. Denies CP, dyspnea, dizziness. Objective Medications Item Value Date Time Pravastatin Sodium 40 mg 06/29/16 0900 (Pravachol) DAILY/PO Vital Signs / I&O Vital Signs Date Time Temp Pulse Resp B/P Pulse Ox O2 Delivery O2 Flow Rate FiO2 06/30/16 07:36 79 06/30/16 07:36 98.1 79 16 139/87 92 06/30/16 07:36 Venturi Mask 3.00 06/30/16 07:22 98 Venturi Mask 6.00 50 06/30/16 04:00 98.0 62 16 164/81 98 06/30/16 04:00 98 Venturi Mask 50 06/30/16 04:00 62 06/30/16 00:00 72 20 160/90 99 06/30/16 00:00 72 06/30/16 00:00 99 Venturi Mask 50 06/29/16 21:53 96 Nasal Cannula 3.00 06/29/16 20:00 75 06/29/16 20:00 95 Nasal Cannula 3.00 06/29/16 20:00 74 06/29/16 20:00 98.1 75 18 150/83 95 06/29/16 16:20 91 06/29/16 15:00 79 06/29/16 15:00 98.1 79 20 154/91 98 06/29/16 15:00 79 06/29/16 11:33 88 I/O 06/29/16 06/29/16 06/29/16 06/30/16 06/30/16 06/30/16 07:00 15:00 23:00 07:00 15:00 23:00 Intake Total 867 ml 1680 ml 2068 ml Output Total 550 ml 825 ml 1560 ml Balance 317 ml 855 ml 508 ml Intake Oral 140 ml 690 ml 360 ml IV Total 727 ml 990 ml 1708 ml Output Urine Total 550 ml 825 ml 1560 ml # Bowel Movements 0 2 1 Physical Exam GENERAL: Well developed, well nourished. No acute distress. HEENT: Jugular venous pressure is normal. CHEST: Lungs clear to auscultation bilaterally. Unlabored respiratory effort. CARDIAC: Regular rate and rhythm without S3, S4, or murmur. ABDOMEN: Soft, nontender, no hepatosplenomegaly. Bowel sounds present. EXTREMITIES: No clubbing, cyanosis, or edema. Laboratory Laboratory Tests Test 06/30/16 05:23 White Blood Count 13.2 TH/MM3 Red Blood Count 4.94 MIL/MM3 Hemoglobin 13.8 GM/DL Hematocrit 42.5 % Mean Corpuscular Volume 85.9 FL Mean Corpuscular Hemoglobin 27.8 PG Mean Corpuscular Hemoglobin 32.4 % Concent Red Cell Distribution Width 14.0 % Platelet Count 214 TH/MM3 Mean Platelet Volume 9.2 FL Neutrophils (%) (Auto) 71.1 % Lymphocytes (%) (Auto) 17.3 % Monocytes (%) (Auto) 10.7 % Eosinophils (%) (Auto) 0.7 % Basophils (%) (Auto) 0.2 % Neutrophils # (Auto) 9.4 TH/MM3 Lymphocytes # (Auto) 2.3 TH/MM3 Monocytes # (Auto) 1.4 TH/MM3 Eosinophils # (Auto) 0.1 TH/MM3 Basophils # (Auto) 0.0 TH/MM3 CBC Comment DIFF FINAL Differential Comment Sodium Level 145 MEQ/L Potassium Level 4.2 MEQ/L Chloride Level 110 MEQ/L Carbon Dioxide Level 29.9 MEQ/L Anion Gap 5 MEQ/L Blood Urea Nitrogen 10 MG/DL Creatinine 0.84 MG/DL Estimat Glomerular Filtration 89 ML/MIN Rate Random Glucose 105 MG/DL Calcium Level 8.2 MG/DL Phosphorus Level 2.1 MG/DL Magnesium Level 2.1 MG/DL Total Bilirubin 0.3 MG/DL Aspartate Amino Transf 17 U/L (AST/SGOT) Alanine Aminotransferase 18 U/L (ALT/SGPT) Alkaline Phosphatase 87 U/L Total Protein 6.5 GM/DL Albumin 2.9 GM/DL Assessment and Plan Problem List: (1) Syncope Assessment and Plan: Stable s/p DDD pacemaker implant today for severe SSS. Discharge tomorrow if pacer parameters stable. Temporary pacer D/C'd. (2) Hyperlipidemia Assessment and Plan: Acceptable lipid profile for primary prevention. Continue statin. Code Status full code Discussed Condition With patient's daughter Problem Qualifiers (1) Syncope: Qualified Code: R55 - Syncope, unspecified syncope type (2) Hyperlipidemia: Qualified Code: E78.2 - Mixed hyperlipidemia Mario Robledo MD June 30, 2016 11:04
[2016-06-30] MEDS ORDERED: IODIXANOL 320 MG/ML 50 ML VIAL (for Cath Lab) IV ONE (11:57)
--- NOTE | 2016-06-30 11:59 | RADRPT ---
EXAM DATE/TIME: 06/30/2016 11:28 [place] COMPARISON: CHEST SINGLE AP, June 29, 2016, 0:21. INDICATIONS : Pneumothorax MEDICAL HISTORY : None. SURGICAL HISTORY : Transvenous pacer placement ENCOUNTER: Subsequent ACUITY: 4 - 6 days PAIN SCORE: 0/10 LOCATION: Bilateral chest FINDINGS: Pacemaker device is noted with control pack over the left chest. Right neck catheter in satisfactory position. No evidence of pneumothorax. Lungs are clear. Cardiac contours satisfactory. CONCLUSION: No pneumothorax Ed Miller MD on June 30, 2016 at 11:55 Board Certified Radiologist. This report was verified electronically.
[2016-06-30] MEDS: ACETAMINOPHEN 325 MG TAB PO PRN ×2 (12:36→21:23)
[2016-06-30] MEDS: amLODIPine BESYLATE 5 MG TAB PO SCH (12:36)
--- NOTE | 2016-06-30 14:31 | EKG ---
Date Performed: 06/29/2016 Time Performed: 16:04:38 PTAGE: 76 years EKG: Sinus rhythm with PAC(s) Poor R wave progression - probable normal variant Compared to prior tracing no significa nt change Borderline ECG PREVIOUS TRACING : 06/29/2016 06.04 DOCTOR: Jefry Stewart Interpretating Date/Time 06/30/2016 14:25:08
--- NOTE | 2016-06-30 14:31 | EKG ---
Date Performed: 06/29/2016 Time Performed: 21:10:06 PTAGE: 76 years EKG: Sinus rhythm with PAC(s) Compared to prior tracing no significant change Borderline ECG PREVIOUS TRACING : 06/29/2016 16.04 DOCTOR: Jefry Stewart Interpretating Date/Time 06/30/2016 14:25:00
--- NOTE | 2016-06-30 14:48 | MP ---
cc: ZORAN PAINTER,ARCELIA Haddad M.D. DATE OF SURGERY: 06/30/2016 PROCEDURE Dual-chamber permanent pacemaker implantation via the left subclavian vein. INDICATIONS Severe sick sinus syndrome, prolonged episode of asystole, syncope. OPERATIVE NOTES The patient was brought to the operating suite in a fasting state after having signed informed consent. The left upper chest was prepped and draped as per policy and anesthetized with 1% lidocaine. Central venous access was obtained twice via the left subclavian vein after administration of 15 cc of contrast through a left arm peripheral IV. A transverse incision was made inferior to the left clavicle and using blunt dissection a subcutaneous pocket was formed down to the pectoralis fascia. Over the more lateral guidewire a 7-Mauritian sheath was placed and through this sheath a ventricular active fixation lead was introduced and its tip positioned in the right ventricular apex where good current of injury, stimulation threshold (0.8 volts) and sensitivity (10.2 millivolts) were verified. This lead was secured into place using 2-0 silk ties down to the pectoralis fascia. Over the remaining guidewire another 7-Mauritian sheath was placed and through this sheath an atrial active fixation lead was introduced and its tip positioned in the right atrial appendage where good current of injury, stimulation threshold (1.2 volts) and sensitivity (1.0 millivolts) were demonstrated. This lead was secured into place using 2-0 silk ties down to the pectoralis fascia. The leads were then connected to the pacemaker generator which is a Biotronik Eluna device. The leads and the generator were then placed back into the subcutaneous pocket which was closed using 3-0 Vicryl interrupted stitches in two layers to close the subcutaneous tissue and then 4-0 Monocryl running stitch to close the subcuticular tissue. Overlapping Steri-Strips and a dressing were applied. There were no apparent immediate complications. A portable chest x-ray is pending at the time of this dictation. CONCLUSIONS Successful dual-chamber permanent pacemaker implantation via the left subclavian vein using a Biotronik Eluna pacemaker generator. MD BEATRICE Valencia/HUSEYIN /10:59 AM /2:39 PM
[2016-06-30] MEDS: CHLORHEXIDINE GLUCONATE 2 % 1 PACK (2 CLOTHS) TOPICAL SCH (21:00)
[2016-06-30] MEDS: POVIDONE IODINE 5% (ANTISEPSIS KIT) 4 APPLICATIONS TOPICAL SCH (21:00)
[2016-06-30] MEDS ORDERED: PRAVASTATIN SOD 20 MG TAB PO SCH (21:00)
[2016-06-30] MEDS: MUPIROCIN 2% OINT 1 APPLIC/GM SYR EACH NARE SCH (21:17)
[2016-06-30] MEDS ORDERED: VANCOMYCIN INJ 1,000 MG in SODIUM CHLOR 0.9% 250 ML INJ 250 ML IV ONE (23:00)
[2016-07-01] VITALS: BP 143/58; PULSE 77; RESP 18; TEMP 97.8; O2SAT 95
[2016-07-01 04:00] VITALS: BP 148/110; PULSE 69; PULSE 97; RESP 16; TEMP 98; O2SAT 97
[2016-07-01 07:00] VITALS: BP 151/92; PULSE 76; RESP 18; TEMP 98.2; O2SAT 97
[2016-07-01] MEDS: CHOLECALCIFEROL (VIT D3) 1000 UNIT TAB PO SCH (08:45)
[2016-07-01] MEDS: amLODIPine BESYLATE 5 MG TAB PO SCH (08:45)
[2016-07-01] MEDS: DOCUSATE SODIUM 100 MG CAP PO SCH (09:00)
[2016-07-01] MEDS: SODIUM CHLORIDE 0.9% FLUSH 10 ML FLUSH IV FLUSH SCH (09:00)
[2016-07-01] MEDS: SENNOSIDES 8.6 MG TAB PO SCH (09:00)
--- NOTE | 2016-07-01 10:12 | PD.CARD.PN ---
Subjective Subjective Remarks Denies pain, dyspnea, dizziness, palpitations. Objective Medications Item Value Date Time Amlodipine 5 mg 06/30/16 1230 Besylate DAILY/PO 07/01/16 0845 (Norvasc) Pravastatin Sodium 40 mg 06/30/16 2100 (Pravachol) HS/PO 06/30/167 Vital Signs / I&O Vital Signs Date Time Temp Pulse Resp B/P Pulse Ox O2 Delivery O2 Flow Rate FiO2 07/01/16 07:00 97 Nasal Cannula 3.00 07/01/16 07:00 76 07/01/16 07:00 98.2 76 18 151/92 97 07/01/16 06:30 97 Nasal Cannula 3.00 07/01/16 04:00 97 Venturi Mask 6.00 50 07/01/16 04:00 98.0 69 16 148/110 97 07/01/16 04:00 97 07/01/16 03:00 98 Venturi Mask 6.00 50 07/01/16 01:00 98 Venturi Mask 6.00 35 07/01/16 00:00 97.8 77 18 143/58 95 07/01/16 00:00 95 Nasal Cannula 3.00 06/30/16 23:40 83 06/30/16 22:25 18 06/30/16 21:45 97 Nasal Cannula 3.00 06/30/16 20:00 98.5 74 18 122/50 97 06/30/16 19:30 97 Nasal Cannula 3.00 06/30/16 19:10 84 06/30/16 15:25 6.00 06/30/16 15:25 85 06/30/16 15:25 98.1 85 16 135/69 06/30/16 11:35 83 06/30/16 11:35 Nasal Cannula 3.00 06/30/16 11:35 98.3 83 18 169/94 99 I/O 06/30/16 06/30/16 06/30/16 07/01/16 07/01/16 07/01/16 07:00 15:00 23:00 07:00 15:00 23:00 Intake Total 2068 ml 450 ml 730 ml Output Total 1560 ml 880 ml 975 ml Balance 508 ml -430 ml -245 ml Intake Oral 360 ml 480 ml IV Total 1708 ml 450 ml 250 ml Output Urine Total 1560 ml 880 ml 975 ml Stool Total 0 ml # Voids 4 # Bowel Movements 1 1 0 Physical Exam GENERAL: Well developed, well nourished. No acute distress. HEENT: Jugular venous pressure is normal. CHEST: Lungs clear to auscultation bilaterally. Pacer site clean, dry, intact, nontender. No hematoma. CARDIAC: Regular rate and rhythm without S3, S4, or murmur. ABDOMEN: Soft, nontender, no hepatosplenomegaly. Bowel sounds present. EXTREMITIES: No clubbing, cyanosis, or edema. Imaging Last 48 hours Impressions Chest X-Ray 06/30/16 1100 Signed Impressions: Service Date/Time: Thursday, June 30, 2016 11:28 - CONCLUSION: No pneumothorax Ed Miller MD Assessment and Plan Problem List: (1) Syncope Assessment and Plan: Stable s/p DDD pacemaker implant yesterday for severe SSS. Pacer site OK. Pacer re-interrogation shows stable, good pacing parameters. Rec discharge today. Patient instructed on use of left arm sling, wound care. He is to follow up with shipping supervisor in [place]. Follow up also in our office this Wed for an incision site recheck. (2) Hyperlipidemia Assessment and Plan: Acceptable lipid profile for primary prevention. Continue statin. (3) Hypertension Assessment and Plan: Fluctuating BP's. Rec continue amlodipine, close f/u with his PCP in [place]. Code Status full code Discussed Condition With patient Problem Qualifiers (1) Syncope: Qualified Code: R55 - Syncope, unspecified syncope type (2) Hyperlipidemia: Qualified Code: E78.2 - Mixed hyperlipidemia (3) Hypertension: Qualified Code: I10 - Essential hypertension Mario Robledo MD July 01, 2016 10:12
[2016-07-01 10:15] VITALS: O2SAT 94
[2016-07-01 11:00] VITALS: BP 137/58; PULSE 87; RESP 18; TEMP 98.3; O2SAT 94
[2016-07-01] MEDS ORDERED: AMLO5 PO (11:18)
[2016-07-01] MEDS ORDERED: BACTOIN EACH NARE (11:18)
[2016-07-01] MEDS ORDERED: TRAMADOL PO (11:18)
--- NOTE | 2016-07-01 11:40 | HHI.PR ---
Subjective Remarks Sales Person Notes: 76-year-old male with past medical history of hyperlipidemia and tobacco abuse who presents to [facility] emergency department this afternoon after he states he was sitting on the couch tonight and got very lightheaded and nauseous. During his ED workup he was placed on cardiac sonographer and had a syncopal event and then asystole. Chest compressions were initiated and he had return of rhythm and pulse after 1 minute. This episode recurred again in the emergency department and Dr. Up discussed with Dr. Watson who recommended transfer to [facility] and trans- venous pacer placement with probable permanent pacemaker placement. Patient states that he has been undergoing a workup for syncope as an outpatient in [facility] where he resides. He is currently visiting the [facility] because his grandson is graduating from [employer]. Patient states he initially had a syncopal event in April 2016 and fell and hit his head requiring stitches. He had a CT brain that was negative he had 2 week Holter monitor that was negative. He had a recurrent episode of syncope in May . After that he had carotid ultrasounds that were negative and echo that was reportedly negative. He had a one-month Holter monitor which we he completed on June [id number]. On June 15 he left to come to [place]. During his visit, he was contacted by the manager commodities that read his Holter monitor and was informed that he had 5.4 second positives and that permanent pacemaker placement was recommended and they recommended he make an appointment for pacemaker to be placed immediately upon arrival back to [place]. Patient is not on any medications that would affect heart rate. 06/29: Events overnight noted. Currently with some ectopy on monitor but hemodynamically stable. Actually hypertensive. For possible permit pacemaker placement today. 06/30: Episode of hypoxia overnight likely secondary to underlying obstructive sleep apnea. Sats in the 70s on nasal cannula and switched to 6 L Venturi mask. While awake sats are 99% awake and alert and following commands. Pacemaker is intermittently pacing throughout the night and rate increased to 60 Hospitalist Notes: 07/01: Patient seen in his bedroom in the presence of nurse at all times while I was in the room, no nausea, vomit or diarrhea, recommended by Cardiology to be discharge and follow in his office on Sunday07/05/16. Objective Vital Signs Date Time Temp Pulse Resp B/P Pulse Ox O2 Delivery O2 Flow Rate FiO2 07/01/16 11:00 94 Room Air 07/01/16 11:00 98.3 87 18 137/58 94 07/01/16 10:15 94 21 07/01/16 07:00 97 Nasal Cannula 3.00 07/01/16 07:00 76 07/01/16 07:00 98.2 76 18 151/92 97 07/01/16 06:30 97 Nasal Cannula 3.00 07/01/16 04:00 97 Venturi Mask 6.00 50 07/01/16 04:00 98.0 69 16 148/110 97 07/01/16 04:00 97 07/01/16 03:00 98 Venturi Mask 6.00 50 07/01/16 01:00 98 Venturi Mask 6.00 35 07/01/16 00:00 97.8 77 18 143/58 95 07/01/16 00:00 95 Nasal Cannula 3.00 06/30/16 23:40 83 06/30/16 22:25 18 06/30/16 21:45 97 Nasal Cannula 3.00 06/30/16 20:00 98.5 74 18 122/50 97 06/30/16 19:30 97 Nasal Cannula 3.00 06/30/16 19:10 84 06/30/16 15:25 6.00 06/30/16 15:25 85 06/30/16 15:25 98.1 85 16 135/69 06/30/16 11:35 83 06/30/16 11:35 Nasal Cannula 3.00 06/30/16 11:35 98.3 83 18 169/94 99 I/O 06/30/16 06/30/16 06/30/16 07/01/16 07/01/16 07/01/16 07:00 15:00 23:00 07:00 15:00 23:00 Intake Total 2068 ml 450 ml 730 ml Output Total 1560 ml 880 ml 975 ml Balance 508 ml -430 ml -245 ml Intake Oral 360 ml 480 ml IV Total 1708 ml 450 ml 250 ml Output Urine Total 1560 ml 880 ml 975 ml Stool Total 0 ml # Voids 4 # Bowel Movements 1 1 0 Result Diagram: 06/30/1652206/30/16522 Imaging Last Impressions Chest X-Ray 06/30/16 1100 Signed Impressions: Service Date/Time: Thursday, June 30, 2016 11:28 - CONCLUSION: No pneumothorax Ed Miller MD Procedures Vascular Central Line Catheter: 06/28/16, Internal Jugular. Pacemaker placement 06/30/16 Other Results Laboratory Tests Test 06/28/16 06/29/16 06/29/16 06/30/16 18:19 00:55 04:48 05:23 Activated Partial 27.8 SEC Thromboplast Time Total Creatine Kinase 61 U/L Thyroid Stimulating Hormone 1.860 uIU/ML 3rd Gen Troponin I 0.03 NG/ML Prothrombin Time 11.7 SEC Prothromb Time International 1.1 RATIO Ratio Triglycerides Level 68 MG/DL Cholesterol Level 123 MG/DL LDL Cholesterol 76 MG/DL HDL Cholesterol 33.8 MG/DL Cholesterol/HDL Ratio 3.63 RATIO White Blood Count 13.2 TH/MM3 Red Blood Count 4.94 MIL/MM3 Hemoglobin 13.8 GM/DL Hematocrit 42.5 % Mean Corpuscular Volume 85.9 FL Mean Corpuscular Hemoglobin 27.8 PG Mean Corpuscular Hemoglobin 32.4 % Concent Red Cell Distribution Width 14.0 % Platelet Count 214 TH/MM3 Mean Platelet Volume 9.2 FL Neutrophils (%) (Auto) 71.1 % Lymphocytes (%) (Auto) 17.3 % Monocytes (%) (Auto) 10.7 % Eosinophils (%) (Auto) 0.7 % Basophils (%) (Auto) 0.2 % Neutrophils # (Auto) 9.4 TH/MM3 Lymphocytes # (Auto) 2.3 TH/MM3 Monocytes # (Auto) 1.4 TH/MM3 Eosinophils # (Auto) 0.1 TH/MM3 Basophils # (Auto) 0.0 TH/MM3 CBC Comment DIFF FINAL Differential Comment Sodium Level 145 MEQ/L Potassium Level 4.2 MEQ/L Chloride Level 110 MEQ/L Carbon Dioxide Level 29.9 MEQ/L Anion Gap 5 MEQ/L Blood Urea Nitrogen 10 MG/DL Creatinine 0.84 MG/DL Estimat Glomerular Filtration 89 ML/MIN Rate Random Glucose 105 MG/DL Calcium Level 8.2 MG/DL Phosphorus Level 2.1 MG/DL Magnesium Level 2.1 MG/DL Total Bilirubin 0.3 MG/DL Aspartate Amino Transf 17 U/L (AST/SGOT) Alanine Aminotransferase 18 U/L (ALT/SGPT) Alkaline Phosphatase 87 U/L Total Protein 6.5 GM/DL Albumin 2.9 GM/DL Objective Remarks GENERAL: Obesity, no acute distress. SKIN: Warm and dry. HEAD: Atraumatic. Normocephalic. EYES: Pupils equal and round about 3 millimeters bilaterally and reactive. No scleral icterus. No injection or drainage. ENT: No nasal bleeding or discharge. Mucous membranes pink and moist. NECK: Trachea midline. No JVD. CARDIOVASCULAR: RRR. S1, S2. No S4. Without murmur, left upper chest dressed , clean surgical wound. RESPIRATORY: No accessory muscle use. Clear to auscultation. Breath sounds equal bilaterally. GASTROINTESTINAL: Abdomen soft, non-tender, nondistended. Bowel sounds present. MUSCULOSKELETAL: Extremities without significant peripheral edema. No obvious deformities. NEUROLOGICAL: Awake and alert. No obvious cranial nerve deficits. Motor grossly within normal limits. Normal speech. Medications and IVs Current Medications Medications (Trade) Dose Ordered Sig/Rakesh Route Start Time Stop Time Status Last Admin (NS Flush) 2 ml UNSCH PRN IV FLUSH 06/28/16 18:30 (NS Flush) 2 ml BID IV FLUSH 06/28/16 21:00 07/01/16 09:00 (Zofran Inj) 4 mg Q6H PRN IVP 06/28/16 18:30 06/28/16 19:26 (Narcan Inj) 0.4 mg UNSCH PRN IV 06/28/16 18:30 (Milk Of Magnesia Liq) 30 ml Q12H PRN PO 06/28/16 18:30 (Senokot) 17.2 mg Q12H PRN PO 06/28/16 18:30 (Dulcolax Supp) 10 mg DAILY PRN RECTAL 06/28/16 18:30 (Lactulose Liq) 30 ml DAILY PRN PO 06/28/16 18:30 (Vitamin D3) 1,000 units DAILY PO 06/29/16 09:00 07/01/16 08:45 (Colace) 100 mg BID PO 06/29/16 09:00 (Senokot) 8.6 mg Q12HR PO 06/29/16 09:00 (Betadine 5% Antisepsis Kit) 1 applic HS TOPICAL 06/29/16 21:00 06/29/16 20:59 (Ambien) 5 mg HS PRN PO 06/30/16 11:00 (Ultram) 50 mg Q6HR PRN PO 06/30/16 11:00 (Norvasc) 5 mg DAILY PO 06/30/16 12:30 07/01/16 08:45 (Tylenol) 650 mg Q4H PRN PO 06/30/16 12:30 06/30/16 21:23 (Pravachol) 40 mg HS PO 06/30/16 21:00 06/30/16 21:17 A/P Assessment and Plan 1.Cardiogenic Syncope, CT brain negative, Carotid Ultrasound negative, he lives in [place] and will return to his City ([place]) Next 07/06/16, status post Pacemaker placement, to continue with Sling for two weeks, Surgical wound care explained to the patient, okay from Cardiology standpoint for discharge. The patient received CPR in ED 06/28, Temporary transvenous pacer placed on , Echocardiogram EF 50-55%, no regional wall motion abnormality, Doctor Vasquez his technical specialist cytology in [place] had him as elective Pacemaker placement for July 07 2016, 2. ROULA Suspected will need Outpatient Polysomnography for probable CPAP 3. Obesity strongly recommended diet and exercise as outpatient. 4. Hyperlipidemia to continue Statins 5. Hypertension better control will need to continue titration as outpatient on Amlodipine. 6. BPH by history on no medicines. 7. Leukocytosis probable secondary to Stress no signs of infection. Prophylaxis - GI -Protonix - DVT - SCD/pharmacological prophylaxis okay with cardiology Discussed with Patient and Nurse Miss Mindy Dias Appreciated input and recommendations all questions answered to the best of my abilities. Discharge Planning Discharge Home. Michel Sheppard MD July 01, 2016 11:40
--- NOTE | 2016-07-01 11:43 | HHI.DS ---
Discharge Summary Admission Date June 28, 2016 at 18:36 Discharge Date: July 01, 2016 Admitting Diagnosis asystole. Syncope. (1) Asystole ICD Code: I46.9 Diagnosis: Principal (2) Syncope ICD Code: R55 Diagnosis: Principal Procedures Pacemaker placement Brief History - From Admission Mr. Osborne is a 76 year old male. He has a history of passing out intermittantly for about one year. Frequency had started at about once every 2-3 months one year ago and recently has been syncope/presyncope about once a week. He had a holter monitor placed about 3 months ago, for two weeks, but no findings were present on that test. Tonight he came to the ER for syncope and emesis. While in the ER he had another episode and was discovered to have asystole for nearly one minute. CPR was initiated and patient regained his own pulse. He has been connected to an external pacemaker now. He will be admitted for placement of a pacemaker. No chest pain reported by the patient. He may have had rheumatic fever as a child, per his mother. he has a past history of smoking, for about 10 years and quit about 30 years ago. No other complaints this evening. CBC/BMP: 06/30/16 0523 06/30/16 0523 Significant Findings Laboratory Tests Test 06/28/16 06/29/16 06/30/16 18:19 04:48 05:23 White Blood Count 15.5 TH/MM3 13.9 TH/MM3 13.2 TH/MM3 (4.0-11.0) (4.0-11.0) (4.0-11.0) Neutrophils (%) (Auto) 79.5 % 73.8 % 71.1 % (16.0-70.0) (16.0-70.0) (16.0-70.0) Basophils (%) (Auto) 3.2 % (0.0-2.0) Neutrophils # (Auto) 12.3 TH/MM3 10.3 TH/MM3 9.4 TH/MM3 (1.8-7.7) (1.8-7.7) (1.8-7.7) Basophils # (Auto) 0.5 TH/MM3 (0-0.2) Estimat Glomerular Filtration 75 ML/MIN (>89) 83 ML/MIN (>89) Rate Random Glucose 155 MG/DL (74-106) Troponin I LESS THAN 0.02 NG/ML (0.02-0.05) Monocytes (%) (Auto) 9.5 % (0.0-8.0) 10.7 % (0.0-8.0) Monocytes # (Auto) 1.3 TH/MM3 1.4 TH/MM3 (0-0.9) (0-0.9) Prothrombin Time 11.7 SEC (9.8-11.6) Calcium Level 7.9 MG/DL 8.2 MG/DL (8.5-10.1) (8.5-10.1) Albumin 3.0 GM/DL 2.9 GM/DL (3.4-5.0) (3.4-5.0) HDL Cholesterol 33.8 MG/DL (40.0-60.0) Chloride Level 110 MEQ/L (98-107) Phosphorus Level 2.1 MG/DL (2.5-4.9) Imaging Last Impressions Chest X-Ray 06/30/16 1100 Signed Impressions: Service Date/Time: Thursday, June 30, 2016 11:28 - CONCLUSION: No pneumothorax Ed Miller MD PE at Discharge GENERAL: Obesity, no acute distress. SKIN: Warm and dry. HEAD: Atraumatic. Normocephalic. EYES: Pupils equal and round about 3 millimeters bilaterally and reactive. No scleral icterus. No injection or drainage. ENT: No nasal bleeding or discharge. Mucous membranes pink and moist. NECK: Trachea midline. No JVD. CARDIOVASCULAR: RRR. S1, S2. No S4. Without murmur, left upper chest dressed , clean surgical wound. RESPIRATORY: No accessory muscle use. Clear to auscultation. Breath sounds equal bilaterally. GASTROINTESTINAL: Abdomen soft, non-tender, nondistended. Bowel sounds present. MUSCULOSKELETAL: Extremities without significant peripheral edema. No obvious deformities. NEUROLOGICAL: Awake and alert. No obvious cranial nerve deficits. Motor grossly within normal limits. Normal speech. Hospital Course Environmental Research Scientist Notes: 76-year-old male with past medical history of hyperlipidemia and tobacco abuse who presents to [facility] emergency department this afternoon after he states he was sitting on the couch tonight and got very lightheaded and nauseous. During his ED workup he was placed on surveillance system monitor and had a syncopal event and then asystole. Chest compressions were initiated and he had return of rhythm and pulse after 1 minute. This episode recurred again in the emergency department and Dr. Up discussed with Dr. Watson who recommended transfer to [facility] and trans- venous pacer placement with probable permanent pacemaker placement. Patient states that he has been undergoing a workup for syncope as an outpatient in [facility] where he resides. He is currently visiting the [facility] because his grandson is graduating from [employer]. Patient states he initially had a syncopal event in April 2016 and fell and hit his head requiring stitches. He had a CT brain that was negative he had 2 week Holter monitor that was negative. He had a recurrent episode of syncope in May . After that he had carotid ultrasounds that were negative and echo that was reportedly negative. He had a one-month Holter monitor which we he completed on June [id number]. On June 15 he left to come to [place]. During his visit, he was contacted by the fence post driver that read his Holter monitor and was informed that he had 5.4 second positives and that permanent pacemaker placement was recommended and they recommended he make an appointment for pacemaker to be placed immediately upon arrival back to [place]. Patient is not on any medications that would affect heart rate. 06/29: Events overnight noted. Currently with some ectopy on monitor but hemodynamically stable. Actually hypertensive. For possible permit pacemaker placement today. 06/30: Episode of hypoxia overnight likely secondary to underlying obstructive sleep apnea. Sats in the 70s on nasal cannula and switched to 6 L Venturi mask. While awake sats are 99% awake and alert and following commands. Pacemaker is intermittently pacing throughout the night and rate increased to 60 Hospitalist Notes: 07/01: Patient seen in his bedroom in the presence of nurse at all times while I was in the room, no nausea, vomit or diarrhea, recommended by Cardiology to be discharge and follow in his office on Sunday07/05/16. Assessment and Plan 1.Cardiogenic Syncope, CT brain negative, Carotid Ultrasound negative, he lives in [place] and will return to his City ([place]) Next 07/06/16, status post Pacemaker placement, to continue with Sling for two weeks, Surgical wound care explained to the patient, okay from Cardiology standpoint for discharge. The patient received CPR in ED 06/28, Temporary transvenous pacer placed on , Echocardiogram EF 50-55%, no regional wall motion abnormality, Doctor Vasquez his military personnel specialist in [place] had him as elective Pacemaker placement for July 07 2016, As per military personnel specialist Severe SSS status post DDD Pacemaker placement. 2. ROULA Suspected will need Outpatient Polysomnography for probable CPAP 3. Obesity strongly recommended diet and exercise as outpatient. 4. Hyperlipidemia to continue Statins 5. Hypertension better control will need to continue titration as outpatient on Amlodipine. 6. BPH by history on no medicines. 7. Leukocytosis probable secondary to Stress no signs of infection. Prophylaxis - GI -Protonix - DVT - SCD/pharmacological prophylaxis okay with cardiology Discussed with Patient and Nurse Miss Mindy Dias Appreciated input and recommendations all questions answered to the best of my abilities. Discharge Planning Discharge Home. Pt Condition on Discharge: Good Discharge Disposition: Discharge Home Discharge Time: <= 30 minutes Discharge Instructions DIET: Follow Instructions for: Heart Healthy Diet Activities you can perform: Regular-No Restrictions Michel Sheppard MD July 01, 2016 11:43
== END 2016-07-01 12:48 | disposition home or self-care (01) | DRG 242 ==
LOC: PHED 17:34 → PHEDA 18:36 → HCVR 21:07
PROVIDERS: ADMIT Internal Medicine; ATTEND Internal Medicine
PROC: 5A12012 Performance of Cardiac Output, Single, Manual (ICD-10-PCS; 2016-06-28)
PROC: 02HV33Z Insertion of Infusion Device into Superior Vena Cava, Percutaneous Approach (ICD-10-PCS; 2016-06-29)
PROC: B543ZZA Ultrasonography of Right Jugular Veins, Guidance (ICD-10-PCS; 2016-06-29)
PROC: 02HK3JZ Insertion of Pacemaker Lead into Right Ventricle, Percutaneous Approach (ICD-10-PCS; 2016-06-30)
PROC: 02H63JZ Insertion of Pacemaker Lead into Right Atrium, Percutaneous Approach (ICD-10-PCS; 2016-06-30)
PROC: 0JH606Z Insertion of Pacemaker, Dual Chamber into Chest Subcutaneous Tissue and Fascia, Open Approach (ICD-10-PCS; principal; 2016-06-30 09:30)
DX: I49.5 Sick sinus syndrome (principal); I46.9 Cardiac arrest, cause unspecified; R55 Syncope and collapse; D72.829 Elevated white blood cell count, unspecified; N40.0 Benign prostatic hyperplasia without lower urinary tract symptoms; R73.09 Other abnormal glucose; R09.02 Hypoxemia; G47.33 Obstructive sleep apnea (adult) (pediatric); E78.2 Mixed hyperlipidemia; I10 Essential (primary) hypertension; E66.9 Obesity, unspecified; Z68.33 Body mass index [BMI] 33.0-33.9, adult; Z82.3 Family history of stroke; Z83.3 Family history of diabetes mellitus; Z87.891 Personal history of nicotine dependence
CPT/HCPCS: 33208; 36556; 71010; 76937; 80053; 80061; 82550; 83735; 84100; 84443; 84484; 85025; 85610; 85730; 93005; 93306; 94150; 99285; C1785; C1898; J0690; J2250; J2405; J3010; J3370; J7030; J7050; Q9967